=== PATIENT | female | born 1955 | race Caucasian/White ===

== ENCOUNTER 2016-11-18 17:11 | Emergency (ER) | payer OTHER ==
[~2016-11-18] VITALS: Ht 152.4 cm; Wt 101.2 kg
[~2016-11-18 17:11] MED LIST: CALC500T PO; LEVO125T5 PO; MEPE50TA PO; PRAV40TA2 PO; SERT100T PO
[2016-11-18 17:23] VITALS: BP 143/94
== END 2016-11-18 18:48 | disposition home or self-care (01) ==
LOC: ED 18:38
DX: S60.221A Contusion of right hand, initial encounter (principal); E78.00 Pure hypercholesterolemia, unspecified; Z90.710 Acquired absence of both cervix and uterus; X58.XXXA Exposure to other specified factors, initial encounter; Y93.89 Activity, other specified; Y99.8 Other external cause status; Y92.89 Other specified places as the place of occurrence of the external cause

== ENCOUNTER → 2016-12-31 | Outpatient (CLI) | payer OTHER ==
[2016-12-31 09:53] LABS: PATH.CAST-FLAG NOT PRESENT; SPERM-FLAG NOT PRESENT; SRC-FLAG NOT PRESENT; XTAL-FLAG NOT PRESENT; YLC-FLAG NOT PRESENT
[2016-12-31 10:04] LABS: BLOOD UREA NITROGEN 16 mg/dL (7-18)
[2016-12-31 10:13] LABS: ASPARTATE AMINO TRANSFERASE 20 U/L (15-37)
== END | disposition home or self-care (01) ==
LOC: LAB 09:29
PROVIDERS: ATTEND Family Medicine
DX: Z00.01 Encounter for general adult medical examination with abnormal findings (principal); E78.5 Hyperlipidemia, unspecified; R82.99 Other abnormal findings in urine
CPT/HCPCS: 36415; 80053; 80061; 81001; 84439; 84443; 85025; 87086

== ENCOUNTER → 2017-12-03 | Outpatient (CLI) | payer OTHER ==
[2017-12-03 09:23] LABS: BASOPHILS # (AUTO) 0.04 x10^3/uL (0-0.1); BASOPHILS % (AUTO) 1 % (0-1); EOSINOPHILS # (AUTO) 0.15 x10^3/uL (0-0.4); EOSINOPHILS % (AUTO) 2 % (1-7); LYMPHOCYTES % (AUTO) 28 % (22-44); MD NO; MEAN CORPUSCULAR HEMOGLOBIN 28.6 pg (27.0-34.8); MEAN CORPUSCULAR HGB CONC 33.2 g/dL (32.4-35.8); MEAN CORPUSCULAR VOLUME 86.3 fL (80-100); MEAN PLATELET VOLUME 7.9 fL (7.4-10.4); MONOCYTES # (AUTO) 0.47 x10^3/uL (0.2-0.8); MONOCYTES % (AUTO) 7 % (2-9); NEUTROPHILS # (AUTO) 3.91 x10^3/uL (1.8-6.8); NEUTROPHILS % (AUTO) 61 % (42-75); PLATELET COUNT 273 x10^3/uL (130-400); RED BLOOD COUNT 5.47 x10^6/uL (3.82-5.3); RED CELL DISTRIBUTION WIDTH 14.2 % (9.6-15.2)
[2017-12-03 09:36] LABS: ALANINE AMINOTRANSFERASE 37 U/L (12-78); ALBUMIN 3.7 g/dL (3.4-5.0); ANION GAP 6 mmol/L (5-15); CHLORIDE 107 mmol/L (98-107); CREATININE 0.78 mg/dL (0.55-1.02); T4 (THYROXINE) 11.6 mcg/dL (4.8-13.9)
[2017-12-03 09:38] LABS: MICROSCOPIC AUTO
[2017-12-03 09:41] LABS: CULTURE INDICATED? NO
[2017-12-03 09:46] LABS: ALKALINE PHOSPHATASE 79 U/L (45-117); BILIRUBIN,TOTAL 0.8 mg/dL (0.2-1.0); TOTAL PROTEIN 7.9 g/dL (6.4-8.2)
== END | disposition home or self-care (01) ==
LOC: LAB 09:01
PROVIDERS: ATTEND Family Medicine
DX: D64.9 Anemia, unspecified (principal); M25.50 Pain in unspecified joint; R53.83 Other fatigue; E78.5 Hyperlipidemia, unspecified; E03.9 Hypothyroidism, unspecified; N39.9 Disorder of urinary system, unspecified
CPT/HCPCS: 36415; 80053; 81001; 84436; 84443; 84481; 85025

== ENCOUNTER → 2018-07-15 | Outpatient (CLI) | payer OTHER ==
[2018-07-15 10:47] LABS: BASOPHILS # (AUTO) 0.07 x10^3/uL (0-0.1); BASOPHILS % (AUTO) 1 % (0-1); EOSINOPHILS # (AUTO) 0.16 x10^3/uL (0-0.4); EOSINOPHILS % (AUTO) 3 % (1-7); LYMPHOCYTES # (AUTO) 1.81 x10^3/uL (1-3.4); LYMPHOCYTES % (AUTO) 28 % (22-44); MD NO; MEAN CORPUSCULAR HEMOGLOBIN 29.1 pg (27.0-34.8); MEAN CORPUSCULAR HGB CONC 33.2 g/dL (32.4-35.8); MEAN CORPUSCULAR VOLUME 87.7 fL (80-100); MEAN PLATELET VOLUME 7.7 fL (7.4-10.4); MONOCYTES # (AUTO) 0.46 x10^3/uL (0.2-0.8); MONOCYTES % (AUTO) 7 % (2-9); NEUTROPHILS # (AUTO) 3.95 x10^3/uL (1.8-6.8); NEUTROPHILS % (AUTO) 61 % (42-75); PLATELET COUNT 290 x10^3/uL (130-400); RED BLOOD COUNT 5.26 x10^6/uL (3.82-5.3); RED CELL DISTRIBUTION WIDTH 13.9 % (9.6-15.2)
[2018-07-15 10:56] LABS: MICROSCOPIC AUTO
[2018-07-15 11:05] LABS: CULTURE INDICATED? YES
[2018-07-15 11:12] LABS: ALBUMIN 3.7 g/dL (3.4-5.0); ANION GAP 4 mmol/L (5-15); CHLORIDE 107 mmol/L (98-107)
[2018-07-15 11:23] LABS: ALANINE AMINOTRANSFERASE 30 U/L (12-78); ALKALINE PHOSPHATASE 86 U/L (45-117); BILIRUBIN,TOTAL 0.9 mg/dL (0.2-1.0); CHOL/HDL RATIO 2.7; CHOLESTEROL, TOTAL 187 mg/dL (140-239); CREATININE 0.65 mg/dL (0.55-1.02); HDL CHOL % 37 % (28-40); HDL CHOLESTEROL (DIRECT) 69 mg/dL (40-60); LDL CHOLESTEROL,CALCULATED 95 mg/dL (54-169); LDL/HDL RATIO 1.4 (0.5-3.0); THYROID STIMULATING HORMONE 0.587 mIU/L (0.358-3.740); TRIGLYCERIDES 115 mg/dL (50-200); VLDL CHOLESTEROL 23 mg/dL (0-25)
== END | disposition home or self-care (01) ==
LOC: LAB 10:24
PROVIDERS: ATTEND Family Medicine
DX: Z00.00 Encounter for general adult medical examination without abnormal findings (principal)
CPT/HCPCS: 36415; 80053; 80061; 81001; 84439; 84443; 85025; 87086

== ENCOUNTER → 2018-09-22 | Outpatient (CLI) | payer OTHER | END | disposition home or self-care (01) | LOC: CFH 12:21 | PROVIDERS: ATTEND Physician Assistant Surgical | DX: M72.2 Plantar fascial fibromatosis (principal); M65.88 Other synovitis and tenosynovitis, other site; M77.52 Other enthesopathy of left foot and ankle ==

== ENCOUNTER → 2018-12-16 | Outpatient (CLI) | payer OTHER ==
[2018-12-16 11:12] LABS: FREE T4 (FREE THYROXINE) 1.33 ng/dL (0.76-1.46); THYROID STIMULATING HORMONE 0.456 mIU/L (0.358-3.740)
== END | disposition home or self-care (01) ==
LOC: LAB 10:37
PROVIDERS: ATTEND Family Medicine
DX: E03.9 Hypothyroidism, unspecified (principal)
CPT/HCPCS: 36415; 84439; 84443

== ENCOUNTER 2018-12-30 08:02 | Outpatient (CLI) | payer OTHER | END 2018-12-30 23:59 | disposition home or self-care (01) | LOC: STAR 08:02 | PROVIDERS: ATTEND Orthopaedic Surgery | DX: Z01.818 Encounter for other preprocedural examination (principal); M25.572 Pain in left ankle and joints of left foot; M76.822 Posterior tibial tendinitis, left leg | CPT/HCPCS: 93005 ==

== ENCOUNTER 2019-06-12 10:05 | Emergency (ER) | payer OTHER ==
[~2019-06-12] VITALS: Ht 152.4 cm; Wt 103.7 kg
[~2019-06-12 10:05] MED LIST changes: -CALC500T PO; +CALC500T29 PO; +CALC500T93 PO; +ESCI10TA10 PO
[2019-06-12 10:23] VITALS: BP 157/107
== END 2019-06-12 11:04 | disposition home or self-care (01) ==
LOC: ED 10:58
DX: J06.9 Acute upper respiratory infection, unspecified (principal); E78.00 Pure hypercholesterolemia, unspecified; Z90.710 Acquired absence of both cervix and uterus
CPT/HCPCS: 71046; 99283

== ENCOUNTER 2019-11-02 16:36 | Observation (INO) | payer OTHER ==
[~2019-11-02] VITALS: Ht 152.4 cm; Wt 104.4 kg
--- NOTE | 2019-11-02 17:03 | NUR ---
TASK RN: PT TO ED WITH L CHEST WALL PAIN AFTER GARDENING YESTERDAY, DESCRIBED ACHY AND INTERMITTENT, 10/14. PT PLACED ON MONITOR, CLINICAL AND ASSESSMENT DONE. CALL LIGHT WITHIN REACH. REPORT TO PRIMARY RN TIKI.
[2019-11-02] MEDS ORDERED: SODIUM CHLORIDE FLUSH 10ML SYR IVF ONE (17:30)
[2019-11-02] MEDS ORDERED: ASPIRIN 81 MG TABLET CHEW PO ONE (17:30)
[2019-11-02] MEDS ORDERED: ASPIRIN 81 MG TABLET CHEW ONE (17:52)
--- NOTE | 2019-11-02 18:00 | NUR ---
PT MEDICATED WITH ASA PER ERP ORDER. PT RATING CW PAIN AT 2/10 AT THIS TIME. VSS/UPDATED IN COMPUTER.
--- NOTE | 2019-11-02 18:12 | NUR ---
PT INFORMED OF ADMIT DESIGNATION BY ERP AND NECESSITY OF IV FOR ADMIT. PT STATES SHE AGREED WITH ERP FOR ADMISSION INITIALLY BUT WOULD LIKE TO MAKE DECISION AFTER CXR AND LAB RESULTS. HOLD ON IV SL AT THIS TIME PER PT WISHES.
[2019-11-02 18:27] LABS: BASOPHILS # (AUTO) 0.04 x10^3/uL (0-0.1); BASOPHILS % (AUTO) 0 % (0-1); EOSINOPHILS # (AUTO) 0.22 x10^3/uL (0-0.4); EOSINOPHILS % (AUTO) 3 % (1-7); LYMPHOCYTES # (AUTO) 2.32 x10^3/uL (1-3.4); LYMPHOCYTES % (AUTO) 27 % (22-44); MD NO; MEAN CORPUSCULAR HEMOGLOBIN 29.3 pg (27.0-34.8); MEAN CORPUSCULAR HGB CONC 33.3 g/dL (32.4-35.8); MEAN PLATELET VOLUME 7.8 fL (7.4-10.4); MONOCYTES % (AUTO) 8 % (2-9); NEUTROPHILS # (AUTO) 5.43 x10^3/uL (1.8-6.8); NEUTROPHILS % (AUTO) 62 % (42-75); PLATELET COUNT 258 x10^3/uL (130-400); RED BLOOD COUNT 4.54 x10^6/uL (3.82-5.3); RED CELL DISTRIBUTION WIDTH 14.1 % (9.6-15.2)
[2019-11-02 18:36] LABS: ALBUMIN 3.4 g/dL (3.4-5.0); ANION GAP 6 mmol/L (5-15); CALCIUM 8.9 mg/dL (8.5-10.1); CHLORIDE 109 mmol/L (98-107)
[2019-11-02 18:41] LABS: CREATININE 0.77 mg/dL (0.55-1.02); TROPONIN I < 0.015 ng/mL (0.000-0.045)
--- NOTE | 2019-11-02 19:01 | NUR ---
REPORT TO MIRIAM BASILIO, TRANSFER OF CARE AT THIS TIME.
--- NOTE | 2019-11-02 19:11 | NUR ---
Report recevied from PRAFUL Navarro. This RN to assume care. Awaiting ERP for recheck.
--- NOTE | 2019-11-02 20:11 | NUR ---
PIV PLACED IN PT WITHOUT DIFFICULTY, PT TOLERATED WELL.
[2019-11-02 21:15] VITALS: BP 130/79
[2019-11-02] MEDS ORDERED: morphine SULFATE 10 MG/ML, 1ML IV PRN (22:00)
[2019-11-02] MEDS ORDERED: hydrALAzine 20 MG/ML, 1ML IVPush PRN (23:30)
[2019-11-02] MEDS ORDERED: ACETAMINOPHEN 325 MG TABLET PO PRN (23:30)
[2019-11-02] MEDS ORDERED: ONDANSETRON 2MG/ML, 2ML IVPush PRN (23:30)
[2019-11-02] MEDS ORDERED: NITROGLYCERIN 0.4 MG BOTTLE (25 TABS) SL PRN (23:30)
[2019-11-02 23:46] LABS: TROPONIN I < 0.015 ng/mL (0.000-0.045)
[2019-11-03 00:11] VITALS: BP 116/71
[2019-11-03 05:44] LABS: CHOLESTEROL, TOTAL 157 mg/dL (140-239); TRIGLYCERIDES 127 mg/dL (50-200); VLDL CHOLESTEROL 25 mg/dL (0-25)
[2019-11-03 05:48] LABS: CHOL/HDL RATIO 3.1; HDL CHOL % 32 % (28-40); HDL CHOLESTEROL (DIRECT) 50 mg/dL (40-60); LDL CHOLESTEROL,CALCULATED 82 mg/dL (54-169); LDL/HDL RATIO 1.6 (0.5-3.0); TROPONIN I < 0.015 ng/mL (0.000-0.045)
[2019-11-03] MEDS ORDERED: ASPIRIN 81 MG TABLET EC PO SCH (06:00)
[2019-11-03 06:59] VITALS: BP 152/56
[2019-11-03 08:03] VITALS: BP 128/81
[2019-11-03] MEDS ORDERED: REGADENOSON 0.4 MG/5 ML SYRINGE ONE (09:09)
[2019-11-03] MEDS ORDERED: ESCITALOPRAM 10MG TABLET PO SCH (12:30)
[2019-11-03] MEDS ORDERED: CALCIUM CARBONATE 500 MG TABLET PO SCH (12:30)
[2019-11-03] MEDS ORDERED: LEVOTHYROXINE 125 MCG TABLET PO SCH (12:30)
[2019-11-03 13:12] VITALS: BP 128/76
[2019-11-03 14:15] VITALS: BP 128/76
== END 2019-11-03 16:49 | disposition home or self-care (01) ==
LOC: ED 19:05 → INTOOBSV 19:10 → 5SO 19:10 → ED 20:23 → 5SO 20:38 → ED 20:51
PROVIDERS: ADMIT Family Medicine; ATTEND Family Medicine
DX: R07.89 Other chest pain (principal); E66.9 Obesity, unspecified; E21.3 Hyperparathyroidism, unspecified; E03.9 Hypothyroidism, unspecified; F32.9 Major depressive disorder, single episode, unspecified; F41.9 Anxiety disorder, unspecified; Z79.899 Other long term (current) drug therapy
CPT/HCPCS: 36415; 71045; 78452; 80048; 80061; 82040; 83036; 83690; 83880; 84443; 84484; 85025; 93005; 93017; 99285; A9502; G0378; J2785

== ENCOUNTER 2019-12-04 09:46 | Outpatient (CLI) | payer OTHER | END 2019-12-04 23:59 | disposition home or self-care (01) | LOC: CVU 09:46 | PROVIDERS: ATTEND Family Medicine | DX: R07.9 Chest pain, unspecified (principal) | CPT/HCPCS: 93306 ==

== ENCOUNTER → 2019-12-18 | Outpatient (CLI) | payer OTHER | END | disposition home or self-care (01) | LOC: RAD 09:26 | PROVIDERS: ATTEND Orthopaedic Surgery | DX: S83.242A Other tear of medial meniscus, current injury, left knee, initial encounter (principal); M22.42 Chondromalacia patellae, left knee; M22.41 Chondromalacia patellae, right knee; X58.XXXA Exposure to other specified factors, initial encounter; Y93.89 Activity, other specified; Y92.89 Other specified places as the place of occurrence of the external cause; Y99.8 Other external cause status ==

== ENCOUNTER → 2020-09-06 | Outpatient (CLI) | payer OTHER ==
[~2020-09-06] MED LIST changes: +levothyroxine PO
== END | disposition home or self-care (01) ==
LOC: STAR 07:18
PROVIDERS: ATTEND Orthopaedic Surgery
DX: Z01.818 Encounter for other preprocedural examination (principal); M25.562 Pain in left knee; Z20.822 Contact with and (suspected) exposure to COVID-19
CPT/HCPCS: 93005; U0003

== ENCOUNTER 2020-09-11 05:21 | Day surgery (SDC) | payer OTHER ==
[~2020-09-11] VITALS: Ht 152.4 cm; Wt 98.8 kg
[2020-09-11] MEDS ORDERED: LACTATED RINGERS 1,000 ML IV SCH (06:00)
[2020-09-11] MEDS ORDERED: CHLORHEXIDINE 15 ML UDC PO ONE (06:00)
[2020-09-11 06:02] VITALS: BP 130/90
[2020-09-11] MEDS ORDERED: ROPIvacaine/PF 0.5%, 30 ML ONE (06:54)
[2020-09-11] MEDS ORDERED: MIDAZOLAM 1 MG/ML, 2ML ONE (06:57)
[2020-09-11] MEDS ORDERED: FENTANYL PF 250 MCG/5ML ONE (06:57)
[2020-09-11] MEDS ORDERED: PROPOFOL 50 ML ONE (07:21)
[2020-09-11] MEDS ORDERED: ONDANSETRON 2MG/ML, 2ML IVPush PRN (07:30)
[2020-09-11] MEDS ORDERED: MEPERIDINE/PF 25MG/0.5ML IVPush PRN (07:30)
[2020-09-11] MEDS ORDERED: hydrALAzine 20 MG/ML, 1ML IV PRN (07:30)
[2020-09-11] MEDS ORDERED: ACETAMINOPHEN 325 MG TABLET PO PRN ×2 (07:30→08:00)
[2020-09-11] MEDS ORDERED: LABETALOL 5MG/ML, 20ML IV PRN (07:30)
[2020-09-11] MEDS ORDERED: PROMETHAZINE 25 MG/ML, 1ML IVPush PRN (07:30)
[2020-09-11] MEDS ORDERED: HYDROmorphone 1 MG/ML, 1ML INJ IVPush PRN (07:30)
[2020-09-11] MEDS ORDERED: FENTANYL PF 100 MCG/2ML IV PRN (07:30)
[2020-09-11] MEDS ORDERED: OXYcodone 5 MG/5 ML ORAL.SOL UDC PO PRN (07:30)
[2020-09-11] MEDS ORDERED: PROMETHAZINE 25 MG/ML, 1ML IM PRN (08:00)
[2020-09-11] MEDS ORDERED: MEPERIDINE/PF 25MG/ML,1ML ONE (08:21)
== END 2020-09-11 09:30 | disposition home or self-care (01) ==
LOC: OUT 05:21
PROVIDERS: ATTEND Orthopaedic Surgery
DX: M23.222 Derangement of posterior horn of medial meniscus due to old tear or injury, left knee (principal); M65.862 Other synovitis and tenosynovitis, left lower leg; M25.562 Pain in left knee; K21.9 Gastro-esophageal reflux disease without esophagitis; I10 Essential (primary) hypertension; G47.30 Sleep apnea, unspecified; Z88.8 Allergy status to other drugs, medicaments and biological substances; Z79.2 Long term (current) use of antibiotics; Z79.899 Other long term (current) drug therapy; Z98.890 Other specified postprocedural states; Z90.49 Acquired absence of other specified parts of digestive tract; Z72.89 Other problems related to lifestyle
CPT/HCPCS: 29881; J2175; J2250; J2704; J2795; J3010; J7120

== ENCOUNTER 2021-02-08 23:18 | Emergency (ER) | payer OTHER ==
[~2021-02-08] VITALS: Ht 152.4 cm; Wt 88.9 kg
[2021-02-09 00:47] VITALS: BP 125/78
== END 2021-02-09 00:59 | disposition home or self-care (01) ==
LOC: ED 23:28
DX: U07.1 COVID-19 (principal); J00 Acute nasopharyngitis [common cold]; E03.9 Hypothyroidism, unspecified
CPT/HCPCS: 99283; U0003; U0005